=== PATIENT | male | born 1960 | race Caucasian/White ===

== ENCOUNTER 2023-08-11 11:07 | Outpatient (CLI) | payer BC | END 2023-08-11 11:08 | disposition home or self-care (01) | LOC: RAD-FRANK 11:07 | PROVIDERS: ATTEND Nurse Practitioner Family | DX: M25.572 Pain in left ankle and joints of left foot (principal); M19.072 Primary osteoarthritis, left ankle and foot; M79.89 Other specified soft tissue disorders ==